=== PATIENT | female | born 1970 | race Caucasian/White ===

== ENCOUNTER 2016-09-25 14:57 | Emergency (ER) | payer MEDICAID ==
[2016-09-25] MEDS ORDERED: HYDROcod/ACETAM 5/325 MG TABLET PO STA (17:13)
[2016-09-25] MEDS ORDERED: DEXAMETHASONE 10 MG/ML VIAL PO STA (17:13)
[2016-09-25] MEDS ORDERED: ALBUTEROL NEB 2.5 MG/3 ML INH STA (17:14)
[2016-09-25] MEDS ORDERED: CHERRY SYRUP 10 ML UDC PO ONE (17:19)
[2016-09-25] MEDS ORDERED: DEXAMETHASONE 10 MG/ML VIAL ONE (17:19)
[2016-09-25] MEDS ORDERED: HYDROcod/ACETAM 5/325 MG TABLET ONE (17:20)
[2016-09-25] MEDS ORDERED: ALBUTEROL NEB 2.5 MG/3 ML INH ONE (17:28)
[2016-09-25] MEDS ORDERED: AZITHROMYCIN 250 MG TABLET PO STA (19:09)
[2016-09-25] MEDS ORDERED: AZITHROMYCIN 250 MG TABLET PO ONE (19:14)
== END 2016-09-25 19:20 | disposition home or self-care (01) ==
DX: J44.9 Chronic obstructive pulmonary disease, unspecified (principal); J45.909 Unspecified asthma, uncomplicated; N93.9 Abnormal uterine and vaginal bleeding, unspecified; I10 Essential (primary) hypertension; M79.7 Fibromyalgia
CPT/HCPCS: 36415; 76830; 76856; 80053; 83690; 85025; 93976; 94640; 99283; 99284; A9270; J7613

== ENCOUNTER 2016-11-12 16:45 | Emergency (ER) | payer MEDICAID ==
[2016-11-12] MEDS ORDERED: CEPHALEXIN 250 MG CAPSULE PO STA (17:06)
[2016-11-12] MEDS ORDERED: LIDOCAINE VISCOUS 2% 15 ML UDC MM STA (17:06)
[2016-11-12] MEDS ORDERED: IBUPROFEN 600 MG TABLET PO STA (17:06)
[2016-11-12] MEDS ORDERED: oxyCOD/ACETAMIN 5 MG/325 MG TABLET PO STA (17:06)
[2016-11-12] MEDS ORDERED: oxyCOD/ACETAMIN 5 MG/325 MG TABLET PO ONE (17:12)
[2016-11-12] MEDS ORDERED: CEPHALEXIN 250 MG CAPSULE PO ONE (17:12)
[2016-11-12] MEDS ORDERED: LIDOCAINE VISCOUS 2% 15 ML UDC MM ONE (17:12)
[2016-11-12] MEDS ORDERED: IBUPROFEN 600 MG TABLET PO ONE (17:12)
== END 2016-11-12 17:40 | disposition home or self-care (01) ==
DX: K04.7 Periapical abscess without sinus (principal); K02.9 Dental caries, unspecified; K08.89 Other specified disorders of teeth and supporting structures; S02.5XXA Fracture of tooth (traumatic), initial encounter for closed fracture; X58.XXXA Exposure to other specified factors, initial encounter; I10 Essential (primary) hypertension; J45.909 Unspecified asthma, uncomplicated; M79.7 Fibromyalgia; Z98.84 Bariatric surgery status
CPT/HCPCS: 99282; 99283; A9270

== ENCOUNTER 2017-01-28 20:12 | Emergency (ER) | payer MEDICAID ==
[2017-01-28 20:19] VITALS: BP 128/88
[2017-01-28] MEDS ORDERED: CLINDAMYCIN 150 MG CAPSULE PO STA (20:58)
[2017-01-28] MEDS ORDERED: oxyCODONE/ACET 5/325 Prepack 4 PO STA (20:58)
--- NOTE | 2017-01-28 21:01 | ED Physician Documentation ---
PD HPI HEENT - Stated complaint Stated Complaint: MOUTH PX - Chief complaint Chief Complaint: Heent - History obtained from History obtained from: Patient - History of Present Illness Timing - onset: Other Timing - details: Abrupt onset (She had a left mandibular molar removed a few days ago and she has increasing pain but no facial swelling or fevers.) Review of Systems Constitutional: reports: Reviewed and negative Nose: reports: Reviewed and negative Cardiac: reports: Reviewed and negative PD PAST MEDICAL HISTORY - Past Medical History Past Medical History: Yes Cardiovascular: Hypertension Respiratory: Asthma Neuro: Headache/migraine Endocrine/Autoimmune: None GI: None : None HEENT: Chronic vision loss Psych: Depression, Anxiety, Panic attacks, Post traumatic stress disorder, Obsessive compulsive disorder Musculoskeletal: Fibromyalgia, Chronic back pain Derm: Eczema, Other - Past Surgical History Past Surgical History: Yes General: Cholecystectomy, Gastric surgery, Other /PA[employer]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[employer]: section - Present Medications Home Medications: Ambulatory Orders Medication Instructions Recorded Confirmed Albuterol Sulfate [Proair Hfa] 1 puffs INH DAILY 10/10/14 08/05/16 Amitriptyline HCl 50 mg PO DAILY 10/10/14 08/05/16 Bupropion HCl 100 mg PO BID 10/10/14 08/05/16 Cetirizine HCl 10 mg PO DAILY 10/10/14 08/05/16 Cyclobenzaprine HCl 10 mg PO TID 10/10/14 08/05/16 Diclofenac Sodium [Voltaren] 1 applic TOP DAILY 10/10/14 08/05/16 Docusate Sodium 100Mg Capsule 200 mg PO BID 10/10/14 08/05/16 [Colace] Fluoxetine HCl 40 mg PO DAILY 10/10/14 08/05/16 Fluticasone/Salmeterol 500/50 2 puffs INH DAILY 10/10/14 08/05/16 [Advair 500 Mcg/50 Mcg] Pregabalin [Lyrica] 100 mg PO TID 10/10/14 08/05/16 Ranitidine HCl 150 mg PO BID 10/10/14 08/05/16 Spironolactone 50 mg PO DAILY 10/10/14 08/05/16 Sumatriptan Succinate [Imitrex] 1 tab PO Q6HR PRN 10/10/14 08/05/16 Topiramate [Topamax] 100 mg PO BID 10/10/14 08/05/16 diphenhydrAMINE [Benadryl] 50 mg PO BID 10/10/14 08/05/16 Ibuprofen [Motrin] 600 mg PO TID #20 tab 11/17/15 08/05/16 Estradiol [Estrace] 1 applic TOP DAILY 08/01/16 08/05/16 Lisinopril 1 tab PO DAILY 08/01/16 08/05/16 Prazosin [Minipress] 1 tab PO DAILY 08/01/16 08/05/16 Promethazine [Phenergan] 1 tab PO DAILY PRN 08/01/16 08/05/16 QUEtiapine [SEROquel] 300 mg PO DAILY 08/01/16 08/05/16 Senna [Senokot] 2 tab PO BID 08/01/16 08/05/16 Azithromycin [Zithromax] 250 mg PO DAILY #6 tablet 09/25/16 Benzonatate [Tessalon] 100 mg PO TID PRN #25 capsule 09/25/16 Dexamethasone [Decadron] 4 mg PO DAILY #5 tablet 09/25/16 Hydrocodone/Acetaminophen [[place] 1 each PO Q6H PRN #15 tablet 09/25/16 5-325 Tablet] Cephalexin [Keflex] 500 mg PO TID #20 capsule 11/12/16 Naproxen [Naprosyn] 500 mg PO BID #20 tablet 11/12/16 Oxycodone HCl/Acetaminophen 1 each PO Q6H PRN #20 tablet 11/12/16 [Percocet 5-325 mg Tablet] Clindamycin [Cleocin] 300 mg PO Q6H 10 Days 01/28/17 Oxycodone HCl/Acetaminophen 1 - 2 tab PO Q4H PRN #15 tablet 01/28/17 [Percocet 5-325 mg Tablet] - Allergies Allergies/Adverse Reactions: Allergies Allergy/AdvReac Type Severity Reaction Status Date / Time aloe vera Allergy Rash Verified 11/12/16 16:57 lanolin Allergy Rash Verified 11/12/16 16:57 latex AdvReac Anaphylaxis Verified 11/12/16 16:57 - Social History Does the pt smoke?: No Smoking Status: Never smoker Does the pt drink ETOH?: No Does the pt have substance abuse?: No - Immunizations Immunizations are current?: Yes - POLST Patient has POLST: No PD ED PE NORMAL - Vitals Vital signs reviewed: Yes - General General: Alert and oriented X 3, No acute distress - HEENT HEENT: Other (Dry socket left mandible no trismus or facial swelling.) - Neck Neck: Supple, no meningeal sign, No bony TTP - Neuro Neuro: Alert and oriented X 3, Normal speech Results - Vitals Vitals: Vital Signs - 24 hr 01/28/17 20:17 Temperature 37.1 C Heart Rate 80 Respiratory 16 Rate Blood Pressure 128/88 H O2 Saturation 97 Oxygen O2 Source Room air Departure - Departure Disposition: Home, Self Care Clinical Impression: Dry tooth socket Condition: Good Record reviewed to determine appropriate education?: Yes Instructions: ED Socket Dry Prescriptions: Clindamycin [Cleocin] 300 mg PO Q6H 10 Days Oxycodone HCl/Acetaminophen [Percocet 5-325 mg Tablet] 1 - 2 tab PO Q4H PRN #15 tablet PRN Reason: Pain Comments: Your blood pressure was elevated today on check in to the emergency department. This does not mean that you have hypertension, it is a common phenomenon to check into the emergency department and have elevated blood pressure. I recommend that you see your primary care physician within the week to have it rechecked when you're feeling better. It is very important that you follow up with a dentist. When it comes to dental problems like yours the emergency department can only offer you a short-term solution to your long-term problem. A couple of options for low-cost dental care include: [facility] in [place] call [phone] for an appointment Or [facility] in [place], call [phone] for an appointment Do not drink or drive while on narcotic pain medicine. Note that many narcotic pain relievers also contain tylenol/acetaminophen. Please ensure that your total dose of acetaminophen from all sources does not exceed 3 grams (3000mg) per day. You may constipated on this medication, take a stool softener such as "Colace" twice a day while you are on it. Also recommend a [id number] laxative such as senna or MiraLAX any day that you do not have a bowel movement. If you received narcotic pain medication in the emergency department, do not drive or operate machinery for the next 24 hours.
[2017-01-28] MEDS ORDERED: oxyCODONE/ACET 5/325 Prepack 4 PO ONE (21:05)
[2017-01-28] MEDS ORDERED: CLINDAMYCIN 150 MG CAPSULE PO ONE (21:06)
== END 2017-01-28 21:14 | disposition home or self-care (01) ==
LOC: ED 20:12
DX: M27.3 Alveolitis of jaws (principal); I10 Essential (primary) hypertension; J45.909 Unspecified asthma, uncomplicated; M79.7 Fibromyalgia
CPT/HCPCS: 99283; A9270

== ENCOUNTER 2017-03-19 16:28 | Emergency (ER) | payer MEDICAID ==
[2017-03-19] MEDS ORDERED: BUPIVACAINE 0.5%-EPI 1:200000 PF 30 ML VIAL ONE (16:42)
--- NOTE | 2017-03-19 16:44 | ED Physician Documentation ---
PD HPI HEENT - Stated complaint Stated Complaint: TOOTH PX - Chief complaint Chief Complaint: Heent - History obtained from History obtained from: Patient - History of Present Illness Timing - onset: Other (Broken tooth on the right mandible with severe pain for the last 2 days, no facial swelling or fevers.) Review of Systems Constitutional: denies: Fever, Chills Nose: denies: Rhinorrhea / runny nose, Congestion Throat: denies: Sore throat PD PAST MEDICAL HISTORY - Past Medical History Cardiovascular: Hypertension Respiratory: Asthma Neuro: Headache/migraine Endocrine/Autoimmune: None GI: None : None HEENT: Chronic vision loss Psych: Depression, Anxiety, Panic attacks, Post traumatic stress disorder, Obsessive compulsive disorder Musculoskeletal: Fibromyalgia, Chronic back pain Derm: Eczema, Other - Past Surgical History Past Surgical History: Yes General: Cholecystectomy, Gastric surgery, 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 Medications Home Medications: Ambulatory Orders Medication Instructions Recorded Confirmed Albuterol Sulfate [Proair Hfa] 1 puffs INH DAILY 10/10/14 03/19/17 Amitriptyline HCl 50 mg PO DAILY 10/10/14 03/19/17 Bupropion HCl 100 mg PO BID 10/10/14 03/19/17 Cetirizine HCl 10 mg PO DAILY 10/10/14 03/19/17 Cyclobenzaprine HCl 10 mg PO TID 10/10/14 03/19/17 Diclofenac Sodium [Voltaren] 1 applic TOP DAILY 10/10/14 03/19/17 Docusate Sodium 100Mg Capsule 200 mg PO BID 10/10/14 03/19/17 [Colace] Fluoxetine HCl 40 mg PO DAILY 10/10/14 03/19/17 Fluticasone/Salmeterol 500/50 2 puffs INH DAILY 10/10/14 03/19/17 [Advair 500 Mcg/50 Mcg] Pregabalin [Lyrica] 100 mg PO TID 10/10/14 03/19/17 Ranitidine HCl 150 mg PO BID 10/10/14 03/19/17 Spironolactone 50 mg PO DAILY 10/10/14 03/19/17 Sumatriptan Succinate [Imitrex] 1 tab PO Q6HR PRN 10/10/14 03/19/17 Topiramate [Topamax] 100 mg PO BID 10/10/14 03/19/17 diphenhydrAMINE [Benadryl] 50 mg PO BID 10/10/14 03/19/17 Ibuprofen [Motrin] 600 mg PO TID #20 tab 11/17/15 03/19/17 Estradiol [Estrace] 1 applic TOP DAILY 08/01/16 03/19/17 Lisinopril 1 tab PO DAILY 08/01/16 03/19/17 Prazosin [Minipress] 1 tab PO DAILY 08/01/16 03/19/17 Promethazine [Phenergan] 1 tab PO DAILY PRN 08/01/16 03/19/17 QUEtiapine [SEROquel] 300 mg PO DAILY 08/01/16 03/19/17 Senna [Senokot] 2 tab PO BID 08/01/16 03/19/17 Dexamethasone [Decadron] 4 mg PO DAILY #5 tablet 09/25/16 03/19/17 Clindamycin [Cleocin] 300 mg PO Q6H 10 Days 03/19/17 Oxycodone HCl/Acetaminophen 1 - 2 tab PO Q4H PRN #15 tablet 03/19/17 [Percocet 5-325 mg Tablet] - Allergies Allergies/Adverse Reactions: Allergies Allergy/AdvReac Type Severity Reaction Status Date / Time aloe vera Allergy Rash Verified 11/12/16 16:57 lanolin Allergy Rash Verified 11/12/16 16:57 latex AdvReac Anaphylaxis Verified 11/12/16 16:57 - Social History Does the pt smoke?: No Smoking Status: Never smoker Does the pt drink ETOH?: No Does the pt have substance abuse?: No - Immunizations Immunizations are current?: Yes - POLST Patient has POLST: No PD ED PE NORMAL - Vitals Vital signs reviewed: Yes - General General: Alert and oriented X 3, No acute distress - HEENT HEENT: Other (Large cavity in a right mandibular molar with tenderness but no facial swelling, no sublingual edema, no trismus.) - Neck Neck: Supple, no meningeal sign, No bony TTP - Neuro Neuro: Alert and oriented X 3, Normal speech - Psych Psych: Normal mood, Normal affect Results - Vitals Vitals: Vital Signs - 24 hr 03/19/17 16:29 Temperature 36.7 C Heart Rate 93 Respiratory 18 Rate Blood Pressure 155/104 H O2 Saturation 97 Oxygen O2 Source Room air Procedures - Regional nerve block Nerve block site: Inferior alveolar Right / left: Right Nerve block anesthesia: Marcaine 0.5% Nerve block aftercare: Excellent anesthesia, No complications Departure - Departure Disposition: 01 Home, Self Care Clinical Impression: Pain due to dental caries, Dental infection Condition: Good Record reviewed to determine appropriate education?: Yes Instructions: ED Tooth Pain Prescriptions: Clindamycin [Cleocin] 300 mg PO Q6H 10 Days Oxycodone HCl/Acetaminophen [Percocet 5-325 mg Tablet] 1 - 2 tab PO Q4H PRN #15 tablet PRN Reason: Pain Comments: It is very important that she follow-up with a dentist. When it comes to dental problems like yours, the emergency department can only offer a short- term solution to your long-term problem. A couple of low cost options for dental care include: [facility] in [place], calls [phone] for an appointment Or [facility] in [place], call [phone] for an appointment. Do not drink or drive while taking narcotic pain medication. Note that many narcotic pain relievers also contain Tylenol/acetaminophen. Please ensure that your total dose of acetaminophen from all sources does not exceed 3 g (3000 mg) per day. You may get constipated while on this medication. Take a stool softener such as Colace twice a day while you are on it. Also add an mcne-ojz-pyfpjky laxative such as senna or MiraLAX on any day that you do not have a bowel movement. If you received a narcotic pain medication or sedative while in the emergency department, do not drive for the next 24 hours. Your blood pressure was elevated today on check into the emergency department. This does not mean that you have hypertension, it is a common phenomenon to come to the emergency department and have elevated blood pressure. I recommend that she see her primary care physician within the week to have it rechecked when you are feeling better. The policy of this emergency department is to not give more than 3 prescriptions for narcotics or other controlled substances in any 1 year. You have already surpassed this benchmark and we cannot prescribe narcotics for you. I encourage you to follow up with your primary care physician or to establish care with a primary care physician for ongoing pain management. You are always welcome to seek emergency care here for this or new issues but there will likely be limitations in the prescription of narcotic pain medication.
[2017-03-19 17:06] VITALS: BP 159/106
== END 2017-03-19 17:04 | disposition home or self-care (01) ==
LOC: ED 16:28
DX: K04.7 Periapical abscess without sinus (principal); K02.9 Dental caries, unspecified; K08.89 Other specified disorders of teeth and supporting structures; I10 Essential (primary) hypertension; J45.909 Unspecified asthma, uncomplicated; M79.7 Fibromyalgia
CPT/HCPCS: 64450; 99282; 99283

== ENCOUNTER 2017-04-08 11:04 | Emergency (ER) | payer MEDICAID ==
--- NOTE | 2017-04-08 12:30 | ED Physician Documentation ---
PD HPI HEENT - Stated complaint Stated Complaint: TOOTH PX - Chief complaint Chief Complaint: Heent - History obtained from History obtained from: Patient - History of Present Illness Timing - onset: How many weeks ago (has had broken tooth awhile and it hurts, but pain worse the past week or so. Concerned about infection. Pain radiates to ear and side of face.) Timing - duration: Weeks (1 week worse pain but has been hurting longer. made appt with [facility] but it is not until early June.) Timing - details: Gradual onset, Still present, Waxing and waning Location: Tooth (right lower) Worsens: Swalllowing, Temperatures Associated symptoms: No: Fever, Congestion, Swollen nodes, Facial swelling Similar symptoms before: Diagnosis (broken tooth and infection) Review of Systems Constitutional: denies: Fever, Chills Nose: denies: Congestion Throat: denies: Sore throat Respiratory: denies: Cough Skin: denies: Rash, Lesions PD PAST MEDICAL HISTORY - Past Medical History Past Medical History: Yes Cardiovascular: Hypertension Respiratory: Asthma Neuro: Headache/migraine Endocrine/Autoimmune: None GI: None : None HEENT: Chronic vision loss Psych: Depression, Anxiety, Panic attacks, Post traumatic stress disorder, Obsessive compulsive disorder Musculoskeletal: Fibromyalgia, Chronic back pain Derm: Eczema, Other - Past Surgical History Past Surgical History: Yes General: Cholecystectomy, Gastric surgery, 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 Medications Home Medications: Ambulatory Orders Medication Instructions Recorded Confirmed Amitriptyline HCl 50 mg PO DAILY 10/10/14 04/08/17 Bupropion HCl 100 mg PO BID 10/10/14 04/08/17 Cetirizine HCl 10 mg PO DAILY 10/10/14 04/08/17 Cyclobenzaprine HCl 10 mg PO TID 10/10/14 04/08/17 Docusate Sodium 100Mg Capsule 200 mg PO BID 10/10/14 04/08/17 [Colace] Fluoxetine HCl 40 mg PO DAILY 10/10/14 04/08/17 Fluticasone/Salmeterol 500/50 2 puffs INH DAILY 10/10/14 04/08/17 [Advair 500 Mcg/50 Mcg] Pregabalin [Lyrica] 100 mg PO TID 10/10/14 04/08/17 Ranitidine HCl 150 mg PO BID 10/10/14 04/08/17 Topiramate [Topamax] 100 mg PO BID 10/10/14 04/08/17 Ibuprofen [Motrin] 600 mg PO TID #20 tab 11/17/15 04/08/17 Lisinopril 1 tab PO DAILY 08/01/16 04/08/17 Promethazine [Phenergan] 1 tab PO DAILY PRN 08/01/16 04/08/17 QUEtiapine [SEROquel] 300 mg PO DAILY 08/01/16 04/08/17 Senna [Senokot] 2 tab PO BID 08/01/16 04/08/17 Oxycodone HCl/Acetaminophen 1 - 2 tab PO Q4H PRN #15 tablet 03/19/17 04/08/17 [Percocet 5-325 mg Tablet] Cephalexin [Keflex] 500 mg PO TID #21 capsule 04/08/17 Oxybutynin [Ditropan] 5 mg PO DAILY 04/08/17 04/08/17 Oxycodone HCl/Acetaminophen 1 each PO Q6H PRN #20 tablet 04/08/17 [Percocet 5-325 mg Tablet] - Allergies Allergies/Adverse Reactions: Allergies Allergy/AdvReac Type Severity Reaction Status Date / Time aloe vera Allergy Rash Verified 11/12/16 16:57 lanolin Allergy Rash Verified 11/12/16 16:57 latex AdvReac Anaphylaxis Verified 11/12/16 16:57 - Social History Does the pt smoke?: No Smoking Status: Never smoker Does the pt drink ETOH?: No Does the pt have substance abuse?: No - Immunizations Immunizations are current?: Yes - POLST Patient has POLST: No PD ED PE NORMAL - Vitals Vital signs reviewed: Yes - General General: Alert and oriented X 3, Well developed/nourished - HEENT HEENT: Ears normal, Pharynx benign. No: Dentition benign (multiple caries. right lower molar with significant decay. Tender to percussion. Mild swelling but no redness of the buccal side gum. ) - Neck Neck: Supple, no meningeal sign, No adenopathy - Cardiac Cardiac: RRR, No murmur - Respiratory Respiratory: Clear bilaterally - Derm Derm: Normal color, Warm and dry, No rash Results - Vitals Vitals: Vital Signs - 24 hr 04/08/17 04/08/17 11:06 12:56 Temperature 36.3 C L Heart Rate 80 78 Respiratory 18 18 Rate Blood Pressure 138/93 H 130/90 H O2 Saturation 99 99 Oxygen O2 Source Room air PD MEDICAL DECISION MAKING - ED course Complexity details: considered differential (sounds like she is making effort but does not have appt with [facility] until June (i did not research if that is true). Concern for early infection. and can give some short pain meds. Reinforced that medication best from PMD and the true answer to the tooth problem is dental services. ), d/w patient Departure - Departure Disposition: Home, Self Care Clinical Impression: Pain due to dental caries Condition: Stable Record reviewed to determine appropriate education?: Yes Instructions: ED Tooth Pain Follow-Up: ALONZO NAYLOR MD [Primary Care Provider] - Prescriptions: Cephalexin [Keflex] 500 mg PO TID #21 capsule Oxycodone HCl/Acetaminophen [Percocet 5-325 mg Tablet] 1 each PO Q6H PRN #20 tablet PRN Reason: Pain Comments: Cleanse the gums and tooth area with antiseptic such as Listerine twice daily. Some anti-inflammatories such as ibuprofen or naproxen are good once or twice a day. Add Tylenol or Percocet if needed for pain. Cephalexin for concern of infection. It is unfortunate that [facility] cannot see you until June, call them back to see if they have any cancellation appointments sooner. Follow-up with dental as soon as you are able. Further treatment medications for your tooth should come through your primary care. Discharge Date/Time: 04/08/17 12:57
[2017-04-08] MEDS ORDERED: oxyCOD/ACETAMIN 5 MG/325 MG TABLET PO STA (12:46)
[2017-04-08] MEDS ORDERED: CEPHALEXIN 250 MG CAPSULE PO STA (12:46)
[2017-04-08] MEDS ORDERED: CEPHALEXIN 250 MG CAPSULE PO ONE (12:54)
[2017-04-08] MEDS ORDERED: oxyCOD/ACETAMIN 5 MG/325 MG TABLET PO ONE (12:55)
[2017-04-08 12:56] VITALS: BP 130/90
== END 2017-04-08 12:57 | disposition home or self-care (01) ==
LOC: ED 11:04
DX: K08.89 Other specified disorders of teeth and supporting structures (principal); K02.9 Dental caries, unspecified; I10 Essential (primary) hypertension; J45.909 Unspecified asthma, uncomplicated; M79.7 Fibromyalgia; Z98.84 Bariatric surgery status
CPT/HCPCS: 99283; A9270

== ENCOUNTER 2017-10-20 12:51 | Emergency (ER) | payer MEDICAID ==
--- NOTE | 2017-10-20 14:19 | ED Physician Documentation ---
PD HPI URI - Stated complaint Stated Complaint: BODY ACHES/FEVER - Chief complaint Chief Complaint: General - History obtained from History obtained from: Patient - History of Present Illness Timing - onset: How many days ago (2) Timing duration: Days (2) Timing details: Gradual onset, Still present Associated symptoms: Fever, Chills, Nasal congestion, Rhinorrhea, Dry cough, NVD , Other (frontal headache). No: Sore throat, Hemoptysis, Chest pain, Dyspnea Contributing factors: No: Sick contact, Travel, Immunocompromised Improves by: No: Rest Worsened by: Activity Similar symptoms before: Has not had sx before Recently seen: Not recently seen Review of Systems Constitutional: reports: Fever, Chills, Myalgias, Fatigue Nose: reports: Rhinorrhea / runny nose, Congestion Throat: denies: Dental pain / toothache, Oral lesions / sores, Sore throat, Swollen tonsils Cardiac: denies: Chest pain / pressure, Palpitations Respiratory: reports: Cough. denies: Dyspnea, Wheezing GI: reports: Nausea, Vomiting, Diarrhea. denies: Abdominal Pain : denies: Dysuria, Frequency Skin: denies: Rash Neurologic: reports: Generalized weakness, Headache. 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 Medications Home Medications: Ambulatory Orders Medication Instructions Recorded Confirmed Cetirizine HCl 10 mg PO DAILY 10/10/14 10/20/17 Cyclobenzaprine HCl 10 mg PO TID 10/10/14 10/20/17 Docusate Sodium 100Mg Capsule 200 mg PO BID 10/10/14 10/20/17 [Colace] Fluticasone/Salmeterol 500/50 2 puffs INH DAILY 10/10/14 10/20/17 [Advair 500 Mcg/50 Mcg] Pregabalin [Lyrica] 100 mg PO TID 10/10/14 10/20/17 Ranitidine HCl 150 mg PO BID 10/10/14 10/20/17 Topiramate [Topamax] 100 mg PO BID 10/10/14 10/20/17 buPROPion HCl [Bupropion HCl] 100 mg PO BID 10/10/14 10/20/17 Ibuprofen [Motrin] 600 mg PO TID #20 tab 11/17/15 10/20/17 Lisinopril 1 tab PO DAILY 08/01/16 10/20/17 Promethazine [Phenergan] 1 tab PO DAILY PRN 08/01/16 10/20/17 Senna [Senokot] 2 tab PO BID 08/01/16 10/20/17 Dexamethasone [Decadron] 4 mg PO DAILY #5 tablet 10/20/17 HYDROcod/ACETAM 5/325 [Morton 5/325] 1 tab PO Q6H PRN #15 tablet 10/20/17 Promethazine [Phenergan] 25 mg PO Q6H PRN #30 tab 10/20/17 Sumatriptan Succinate [Imitrex] 100 mg PO ONCE PRN #9 tablet 10/20/17 - Allergies Allergies/Adverse Reactions: Allergies Allergy/AdvReac Type Severity Reaction Status Date / Time aloe vera Allergy Rash Verified 10/20/17 14:16 lanolin Allergy Rash Verified 10/20/17 14:16 latex AdvReac Anaphylaxis Verified 10/20/17 14:16 - Social History Does the pt smoke?: No Smoking Status: Never smoker Does the pt drink ETOH?: No Does the pt have substance abuse?: No - Immunizations Immunizations are current?: Yes - POLST Patient has POLST: No PD ED PE NORMAL - Vitals Vital signs reviewed: Yes - General General: Alert and oriented X 3, No acute distress, Well developed/nourished - HEENT HEENT: Ears normal, Pharynx benign. No: Moist mucous membranes - Neck Neck: Supple, no meningeal sign, No adenopathy - Cardiac Cardiac: RRR, No murmur - Respiratory Respiratory: Clear bilaterally - Abdomen Abdomen: Soft, Non tender - Back Back: No CVA TTP - Derm Derm: Normal color, Warm and dry - Extremities Extremities: No tenderness to palpate, Normal ROM s pain - Neuro Neuro: Alert and oriented X 3, No motor deficit, No sensory deficit, Normal speech Eye Opening: Spontaneous Motor: Obeys Commands Verbal: Oriented GCS Score: 15 - Psych Psych: Normal mood, Normal affect Results - Vitals Vitals: Oxygen O2 Source Room air - Labs Labs: Laboratory Tests 10/20/17 14:28 Influenza A (Rapid) Negative Influenza B (Rapid) Negative Influenza Types A,B Ag - PD MEDICAL DECISION MAKING - ED course Complexity details: reviewed results, re-evaluated patient (much improved with meds. ), considered differential (she does not appear meningitic and exam does not suggest that. She has had some URI symptoms nad malaise, but has headache similar to prior migraines. ), d/w patient Departure - Departure Disposition: 01 Home, Self Care Clinical Impression: Flu-like symptoms Migraine headache Qualifiers: Migraine type: unspecified Status migrainosus presence: without status migrainosus Intractability: not intractable Qualified Code(s): G43.909 - Migraine, unspecified, not intractable, without status migrainosus Condition: Stable Record reviewed to determine appropriate education?: Yes Instructions: ED Headache Migraine, ED Viral Syndrome Follow-Up: ALONZO NAYLOR MD [Primary Care Provider] - Prescriptions: Dexamethasone [Decadron] 4 mg PO DAILY #5 tablet HYDROcod/ACETAM 5/325 [Morton 5/325] 1 tab PO Q6H PRN #15 tablet PRN Reason: Pain Promethazine [Phenergan] 25 mg PO Q6H PRN #30 tab PRN Reason: Nausea / Vomiting Sumatriptan Succinate [Imitrex] 100 mg PO ONCE PRN #9 tablet PRN Reason: Migraine Comments: Your symptoms generally sound like a flu or viral type illness. Use promethazine if needed for nausea. Use Decadron daily for 5 days as an anti- inflammatory to decrease symptoms of aches and cough and such. Add Tylenol or hydrocodone if needed for pains. It also sounds like he had a migraine triggered and if you have subsequent ones, use the Imitrex and promethazine for those. Follow-up with your primary care if not improved over the next 3-5 days. Discharge Date/Time: 10/20/17 19:39
[2017-10-20] MEDS ORDERED: KETOROLAC 60 MG/2 ML VIAL IM STA (14:55)
[2017-10-20] MEDS ORDERED: ONDANSETRON ODT 4 MG TABLET TL STA (14:55)
[2017-10-20] MEDS ORDERED: HYDROmorphone 1 MG/ML SYRINGE IM STA (14:55)
[2017-10-20] MEDS ORDERED: PROMETHAZINE 25 MG/1 ML VIAL IM STA (14:55)
[2017-10-20] MEDS ORDERED: DEXAMETHASONE 10 MG/ML VIAL PO STA (14:55)
[2017-10-20] MEDS ORDERED: METOCLOPRAMIDE 10 MG/2 ML VIAL IVP STA (15:53)
[2017-10-20] MEDS ORDERED: SODIUM CHLORIDE 0.9% 1,000 ML IV ONE ×2 (15:53→18:07)
[2017-10-20] MEDS ORDERED: HYDROmorphone 1 MG/ML SYRINGE IVP STA (15:53)
[2017-10-20] MEDS ORDERED: ONDANSETRON 4 MG/2 ML VIAL IVP STA (19:20)
[2017-10-20 19:40] VITALS: BP 110/67
== END 2017-10-20 19:39 | disposition home or self-care (01) ==
LOC: ED 12:51
DX: M79.1 Myalgia (principal); R50.9 Fever, unspecified; R09.81 Nasal congestion; G43.909 Migraine, unspecified, not intractable, without status migrainosus; I10 Essential (primary) hypertension
CPT/HCPCS: 87275; 87276; 96361; 96372; 96374; 96375; 99283; 99284; J1170; J2765; Q0162; 81001; 81003; 87086

== ENCOUNTER 2017-11-21 18:23 | Emergency (ER) | payer MEDICAID ==
[2017-11-21 18:36] VITALS: BP 144/89
--- NOTE | 2017-11-21 19:57 | XRAY Report ---
EXAM: CHEST RADIOGRAPHY EXAM DATE: 11/21/2017 07:47 PM. CLINICAL HISTORY: Cough, fever. COMPARISON: 10/18/2014. TECHNIQUE: 2 views. FINDINGS: Lungs/Pleura: No focal opacities evident. No pleural effusion. No pneumothorax. Normal volumes. Mediastinum: Heart and mediastinal contours are unremarkable. Other: None. IMPRESSION: No acute cardiopulmonary abnormality. [facility] Referring Provider Line: [phone] SITE ID: [id number]
--- NOTE | 2017-11-21 19:57 | XRAY Preliminary Report ---
Exam: XR CHEST 2 VIEW X-RAY IMPRESSION: No acute cardiopulmonary abnormality. [facility] SITE ID: [id number]
--- NOTE | 2017-11-21 20:14 | ED Physician Documentation ---
PD HPI URI - Stated complaint Stated Complaint: COUGH - Chief complaint Chief Complaint: Resp - History obtained from History obtained from: Patient, Family - History of Present Illness Timing - onset: How many weeks ago (2) Timing duration: Weeks (2) Timing details: Gradual onset Pain level max: 0 Pain level now: 0 Associated symptoms: Nasal congestion, Rhinorrhea, Dry cough Contributing factors: Sick contact Improves by: Rest, Medication (mucinex) Worsened by: Activity, Breathing Recently seen: Emergency Dept (seen here 2 weeks ago for same) - Additional information Additional information: Patient is a 47-year-old female presents to the emergency department with viral URI symptoms, for the past several weeks. Has only been using her inhaler 2-3 times a day. Is not currently on any steroids. Continues to have cough and that is keeping her up at night. Review of Systems Constitutional: denies: Fever Nose: reports: Rhinorrhea / runny nose, Congestion Cardiac: denies: Chest pain / pressure Respiratory: reports: Dyspnea, Cough, Wheezing GI: reports: Abdominal Pain (states abd hurts with coughing). denies: Nausea, Vomiting, Diarrhea Skin: denies: Rash Musculoskeletal: denies: Neck pain, Back pain Neurologic: denies: Headache PD PAST MEDICAL HISTORY - Past Medical History Past Medical History: Yes Cardiovascular: Hypertension Respiratory: Asthma Neuro: Headache/migraine Endocrine/Autoimmune: None GI: None : None HEENT: Chronic vision loss Psych: Depression, Anxiety, Panic attacks, Post traumatic stress disorder, Obsessive compulsive disorder Musculoskeletal: Fibromyalgia, Chronic back pain Derm: Eczema, Other - Past Surgical History Past Surgical History: Yes General: Cholecystectomy, Gastric surgery, 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 - Present Medications Home Medications: Ambulatory Orders Medication Instructions Recorded Confirmed Albuterol 2.5 mg INH Q4H PRN #30 neb 11/21/17 Albuterol Sulfate [Proair Hfa 1 - 2 puffs PO PRN PRN 11/21/17 11/21/17 Inhaler] Benzonatate [Tessalon Perle] 100 - 200 mg PO TID PRN #30 capsule 11/21/17 Cyclobenzaprine [Flexeril] 10 mg PO PRN PRN 11/21/17 11/21/17 DULoxetine [Cymbalta] 30 mg PO DAILY 11/21/17 11/21/17 Docusate Sodium 1 tab PO DAILY 11/21/17 11/21/17 Doxycycline Hyclate 100 mg PO BID #20 tablet 11/21/17 Fluticasone/Salmeterol [Advair 1 tab PO DAILY 11/21/17 11/21/17 250-50 Diskus] Lisinopril 20 mg PO DAILY 11/21/17 11/21/17 Magnesium Oxide [Magnesium] 400 mg PO DAILY 11/21/17 11/21/17 Prazosin HCl 5 mg PO DAILY 11/21/17 11/21/17 Pregabalin [Lyrica] 100 mg PO DAILY 11/21/17 11/21/17 QUEtiapine [SEROquel] 50 mg PO DAILY 11/21/17 11/21/17 Senna [Senokot] 8.6 mg PO DAILY 11/21/17 11/21/17 Topiramate 50 mg PO DAILY 11/21/17 11/21/17 Topiramate [Trokendi Xr] 100 mg PO DAILY 11/21/17 11/21/17 buPROPion [Wellbutrin Sr] 150 mg PO DAILY 11/21/17 11/21/17 raNITIdine [Zantac] 150 mg PO DAILY 11/21/17 11/21/17 - Allergies Allergies/Adverse Reactions: Allergies Allergy/AdvReac Type Severity Reaction Status Date / Time aloe vera Allergy Rash Verified 11/21/17 18:37 lanolin Allergy Rash Verified 11/21/17 18:37 latex AdvReac Anaphylaxis Verified 10/20/17 14:16 - Social History Does the pt smoke?: No Smoking Status: Never smoker Does the pt drink ETOH?: No Does the pt have substance abuse?: No - Immunizations Immunizations are current?: Yes - POLST Patient has POLST: No PD ED PE NORMAL - Vitals Vital signs reviewed: Yes - General General: Alert and oriented X 3, No acute distress, Well developed/nourished - HEENT HEENT: PERRL, Ears normal, Moist mucous membranes, Pharynx benign - Neck Neck: Supple, no meningeal sign, No adenopathy - Cardiac Cardiac: RRR - Respiratory Respiratory: Other (diminished B) - Abdomen Abdomen: Soft, Non tender, Non distended - Derm Derm: Warm and dry - Neuro Neuro: Alert and oriented X 3 - Psych Psych: Normal mood, Normal affect Results - Vitals Vitals: Vital Signs - 24 hr 11/21/17 11/21/17 18:33 20:25 Temperature 37.1 C Heart Rate 110 H 108 H Respiratory 19 18 Rate Blood Pressure 144/89 H O2 Saturation 96 Oxygen O2 Source Room air - Rads (name of study) cxr Radiology: Prelim report reviewed, EMP read contemporaneously, See rad report ( normal) PD MEDICAL DECISION MAKING - ED course Complexity details: reviewed results, re-evaluated patient, considered differential, d/w patient, d/w family ED course: Patient is a 47-year-old female who presents to the emergency department with what appears to be a COPD exacerbation. As her symptoms have been ongoing for over a month now and given her COPD history we will trial her on doxycycline. She was also given steroids and breathing treatments. She is well-appearing, nontoxic. Feels better after nebulizer treatment. She is out of the albuterol for her nebulizer machine and will refill this for her. Patient counseled regarding signs and symptoms for which I believe and urgent re-evaluation would be necessary. Patient with good understanding of and agreement to plan and is comfortable going home at this time This document was made in part using voice recognition software. While efforts are made to proofread this document, sound alike and grammatical errors may occur. Departure - Departure Disposition: 01 Home, Self Care Clinical Impression: COPD exacerbation Condition: Good Instructions: ED COPD Flare Follow-Up: your,doctor in 1 week [Other] Prescriptions: Albuterol 2.5 mg INH Q4H PRN #30 neb PRN Reason: Wheezing Benzonatate [Tessalon Perle] 100 - 200 mg PO TID PRN #30 capsule PRN Reason: Cough Doxycycline Hyclate 100 mg PO BID #20 tablet Comments: Stop the magnesium while taking the doxycycline. Return if you worsen. Discharge Date/Time: 11/21/17 21:01
[2017-11-21] MEDS ORDERED: predniSONE 20 MG TABLET PO STA (20:16)
[2017-11-21] MEDS ORDERED: IPRATROPIUM/ALBUTEROL 3 ML NEB INH STA (20:16)
[2017-11-21] MEDS ORDERED: DOXYCYCLINE 100 MG TABLET PO STA ×2 (20:38→20:58)
== END 2017-11-21 21:01 | disposition home or self-care (01) ==
LOC: ED 18:23
DX: J44.1 Chronic obstructive pulmonary disease with (acute) exacerbation (principal); I10 Essential (primary) hypertension
CPT/HCPCS: 71046; 94640; 94664; 99283; A9270; J7512

== ENCOUNTER 2018-11-27 07:49 | Outpatient (CLI) | payer MEDICAID ==
[2018-11-27 08:56] LABS: BASOPHILS # (AUTO) 0.1 10^3/uL (0.0-0.1); BASOPHILS % (AUTO) 0.8 %; EOSINOPHILS # (AUTO) 0.2 10^3/uL (0.0-0.7); EOSINOPHILS % (AUTO) 2.9 %; HGB - HEMOGLOBIN 10.8 g/dL (12.0-16.0); LYMPHOCYTES # (AUTO) 3.1 10^3/uL (1.5-3.5); LYMPHOCYTES % (AUTO) 36.1 %; MEAN CORPUSCULAR HEMOGLOBIN 22.8 pg (27.0-31.0); MEAN CORPUSCULAR HGB CONC 31.2 g/dL (32.0-36.0); MEAN CORPUSCULAR VOLUME 73.2 fL (81.0-99.0); MEAN PLATELET VOLUME 7.9 fL (7.9-10.8); MONOCYTES # (AUTO) 0.6 10^3/uL (0.0-1.0); MONOCYTES % (AUTO) 7.6 %; NEUTROPHILS # (AUTO) 4.5 10^3/uL (1.5-6.6); NEUTROPHILS % (AUTO) 52.6 %; PLT - PLATELET COUNT 278 10^3/uL (130-450); RED BLOOD COUNT 4.74 10^6/uL (4.20-5.40); RED CELL DISTRIBUTION WIDTH 17.9 % (12.0-15.0); WHITE BLOOD COUNT 8.5 x10^3/uL (4.8-10.8)
[2018-11-27 09:05] LABS: HB2 TOTAL 11.9 g/dL; HEMOGLOBIN A1C 0.44 g/dL; HEMOGLOBIN A1C % 5.5 % (4.6-6.2)
[2018-11-27 09:06] LABS: ALBUMIN/GLOBULIN RATIO 1.1 (1.0-2.2); ALKALINE PHOSPHATASE 96 IU/L (42-121); ALT ALANINE AMINOTRANSFERASE 15 IU/L (10-60); AST ASPARTATE AMINOTRANSFERASE 22 IU/L (10-42); BILIRUBIN,TOTAL 0.6 mg/dL (0.2-1.0); BUN - BLOOD UREA NITROGEN 22 mg/dL (6-20); CALCIUM 8.8 mg/dL (8.5-10.3); CARBON DIOXIDE - CO2 21 mmol/L (21-32); CHLORIDE 102 mmol/L (101-111); CHOL/HDL RATIO 4.5 (<4.4); CHOLESTEROL 238 mg/dL; CREATININE 0.8 mg/dL (0.4-1.0); GFR - MDRD 77 (>89); GLUCOSE 100 mg/dL (70-100); HDL CHOLESTEROL 53 mg/dL; LDL CHOLESTEROL,CALCULATED 148 mg/dL; LDL/HDL RATIO 2.8 (<4.4); SODIUM 136 mmol/L (135-145); TOTAL PROTEIN 7.6 g/dL (6.7-8.2); VLDL CHOLESTEROL 37 mg/dL
[2018-11-27 09:27] LABS: FOLATE 12.57 ng/mL (5.90 - >24.8)
[2018-11-27 09:35] LABS: CRP - C-REACTIVE PROTEIN 1.7 mg/dL (0-1.0)
[2018-11-27 10:01] LABS: RHEUMATOID FACTOR NEGATIVE (Negative)
[2018-11-29 15:40] LABS: HEPATITIS A IGM NON-REACTIVE (NON-REACTIVE); HEPATITIS B CORE ANTIBODY IGM NON-REACTIVE (NON-REACTIVE); HEPATITIS B SURFACE ANTIGEN NON-REACTIVE (NON-REACTIVE); HEPATITIS C ANTIBODY NON-REACTIVE (NON-REACTIVE)
[2018-11-30 14:32] LABS: ANA SCREEN NEGATIVE (NEGATIVE)
== END 2018-11-27 07:50 | disposition home or self-care (01) ==
LOC: LAB 07:49
PROVIDERS: ATTEND Internal Medicine
DX: M79.7 Fibromyalgia (principal); K21.9 Gastro-esophageal reflux disease without esophagitis; Z13.1 Encounter for screening for diabetes mellitus; Z13.220 Encounter for screening for lipoid disorders
CPT/HCPCS: 36415; 80053; 80061; 80074; 82607; 82746; 83036; 83721; 85025; 85651; 86038; 86140; 86430

== ENCOUNTER 2018-11-27 08:43 | Emergency (ER) | payer MEDICAID ==
[2018-11-27 08:53] VITALS: BP 108/70
--- NOTE | 2018-11-27 09:11 | ED Physician Documentation ---
History of Present Illness - Stated complaint Stated Complaint: BACK PX/GLF - Chief complaint Chief Complaint: Ext Problem - History obtained from History obtained from: Patient - History of Present Illness Timing: Yesterday Pain level max: 8 Pain level now: 5 - Additonal information Additional information: 48-year-old female presents to the emergency department after falling in her bathroom last night. She landed on her tailbone causing pain here. She also landed on her left knee, but is not causing her pain today. She states that she is also constipated has not had a bowel movement in 5 days. She is normally on Dulcolax. She states that she is only on Lyrica at home for pain. Worse with sitting, better with standing. No head injury. No neck or back pain. Review of Systems Constitutional: denies: Fever Respiratory: denies: Cough GI: reports: Constipation (No bowel movement times 5 days). 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 - Present Medications Home Medications: Ambulatory Orders Medication Instructions Recorded Confirmed Albuterol 2.5 mg INH Q4H PRN #30 neb 11/21/17 Albuterol Sulfate [Proair Hfa 1 - 2 puffs PO PRN PRN 11/21/17 11/21/17 Inhaler] Benzonatate [Tessalon Perle] 100 - 200 mg PO TID PRN #30 capsule 11/21/17 Cyclobenzaprine [Flexeril] 10 mg PO PRN PRN 11/21/17 11/21/17 DULoxetine [Cymbalta] 30 mg PO DAILY 11/21/17 11/21/17 Docusate Sodium 1 tab PO DAILY 11/21/17 11/21/17 Doxycycline Hyclate 100 mg PO BID #20 tablet 11/21/17 Fluticasone/Salmeterol [Advair 1 tab PO DAILY 11/21/17 11/21/17 250-50 Diskus] Lisinopril 20 mg PO DAILY 11/21/17 11/21/17 Magnesium Oxide [Magnesium] 400 mg PO DAILY 11/21/17 11/21/17 Prazosin HCl 5 mg PO DAILY 11/21/17 11/21/17 Pregabalin [Lyrica] 100 mg PO DAILY 11/21/17 11/21/17 QUEtiapine [SEROquel] 50 mg PO DAILY 11/21/17 11/21/17 Senna [Senokot] 8.6 mg PO DAILY 11/21/17 11/21/17 Topiramate 50 mg PO DAILY 11/21/17 11/21/17 Topiramate [Trokendi Xr] 100 mg PO DAILY 11/21/17 11/21/17 buPROPion [Wellbutrin Sr] 150 mg PO DAILY 11/21/17 11/21/17 raNITIdine [Zantac] 150 mg PO DAILY 11/21/17 11/21/17 Hydrocodone/Acetaminophen 1 - 2 each PO Q6H PRN #14 tablet 11/27/18 [Hydrocodon-Acetaminophen 5-325] Magnesium Citrate 296 ml PO ONCE PRN #1 bottle 11/27/18 - Allergies Allergies/Adverse Reactions: Allergies Allergy/AdvReac Type Severity Reaction Status Date / Time aloe vera Allergy Rash Verified 11/27/18 08:53 lanolin Allergy Rash Verified 11/27/18 08:53 latex AdvReac Anaphylaxis Verified 11/27/18 08:53 - Social History Does the pt smoke?: No Smoking Status: Never smoker Does the pt drink ETOH?: No Does the pt have substance abuse?: No - Immunizations Immunizations are current?: Yes - POLST Patient has POLST: No PD ED PE NORMAL - Vitals Vital signs reviewed: Yes - General General: Alert and oriented X 3, No acute distress, Well developed/nourished - HEENT HEENT: PERRL, Moist mucous membranes - Neck Neck: Supple, no meningeal sign - Cardiac Cardiac: RRR - Respiratory Respiratory: No respiratory distress, Clear bilaterally - Abdomen Abdomen: Soft, Non tender, Non distended - Back Back: No spinal TTP (No tender palpation over the thoracolumbar spine. She is tender over the distal sacrum/upper coccyx. No swelling, deformity or ecchymosis) - Derm Derm: Warm and dry - Neuro Neuro: Alert and oriented X 3 - Psych Psych: Normal mood, Normal affect Results - Vitals Vitals: Vital Signs - 24 hr 11/27/18 08:51 Temperature 36.5 C Heart Rate 89 Respiratory 18 Rate Blood Pressure 108/70 O2 Saturation 99 Oxygen O2 Source Room air - Rads (name of study) Sacrum/coccyx x-ray Radiology: Prelim report reviewed, EMP read contemporaneously, See rad report (1. No coccygeal fracture identified. 2. Pars defect at L5. 3. Grade 1 anterior listhesis of L5 on S1. ) PD MEDICAL DECISION MAKING - ED course Complexity details: reviewed results, re-evaluated patient, considered differential, d/w patient ED course: 48-year-old female presents to the emergency department with sacrum/coccyx pain after falling. No fracture on x-ray. Ambulating well. She is also constipated will prescribe magnesium citrate for this. No neurological deficits. Patient counseled regarding signs and symptoms for which I believe and urgent re- evaluation would be necessary. Patient with good understanding of and agreement to plan and is comfortable going home at this time This document was made in part using voice recognition software. While efforts are made to proofread this document, sound alike and grammatical errors may occur. Departure - Departure Disposition: 01 Home, Self Care Clinical Impression: Coccyx contusion Qualifiers: Encounter type: initial encounter Qualified Code(s): S30.0XXA - Contusion of lower back and pelvis, initial encounter Constipation Qualifiers: Constipation type: unspecified constipation type Qualified Code(s): K59.00 - Constipation, unspecified Condition: Good Instructions: ED Constipation, ED Contusion Sacrum Coccyx Follow-Up: ALONZO NAYLOR MD [Primary Care Provider] - Within 1 week Prescriptions: Hydrocodone/Acetaminophen [Hydrocodon-Acetaminophen 5-325] 1 - 2 each PO Q6H PRN #14 tablet PRN Reason: pain Magnesium Citrate 296 ml PO ONCE PRN #1 bottle PRN Reason: Constipation Comments: Return if you worsen. Drink plenty of fluids. This should improve over the next several days. Your x-ray does not show any fracture today. Do not drink alcohol or drive while on narcotic pain medicine. Note that many narcotic pain relievers also contain tylenol/acetaminophen. Please ensure that your total dose of acetaminophen from all sources does not exceed 3 grams (3000mg) per day. You may constipated on this medication, take a stool softener such as "Colace" twice a day while you are on it. Also recommend a [id number] laxative such as senna or MiraLAX any day that you do not have a bowel movement. If you received narcotic pain medication in the emergency department, do not drive or operate machinery for the next 24 hours. Discharge Date/Time: 11/27/18 10:02
--- NOTE | 2018-11-27 09:37 | XRAY Report ---
Reason: fall, coccyx pain Procedure Date: 11/27/2018 Accession Number: [id number] / [id number] Procedure: XR - Sacrum/Coccyx CPT Code: FULL RESULT: EXAM: SACRUM AND COCCYX RADIOGRAPHY EXAM DATE: 11/27/2018 09:25 AM. HISTORY: Fall, coccyx pain. COMPARISONS: XR PELVIS 1 OR 2 VIEWS 06/09/2010 10:00 PM. TECHNIQUE: 3 views. FINDINGS: Alignment: Grade 1 anterior listhesis of L5 on S1. Bones: Pars defect at L5. No coccygeal fracture identified. Joints: Normal. The sacroiliac joints and visualized hips are within normal limits. Soft Tissues: Unremarkable. IMPRESSION: 1. No coccygeal fracture identified. 2. Pars defect at L5. 3. Grade 1 anterior listhesis of L5 on S1. RAD[facility]
[2018-11-27] MEDS ORDERED: HYDROcod/ACETAM 5/325 MG TABLET PO STA (09:54)
== END 2018-11-27 10:02 | disposition home or self-care (01) ==
LOC: ED 08:43
DX: S30.0XXA Contusion of lower back and pelvis, initial encounter (principal); W18.12XA Fall from or off toilet with subsequent striking against object, initial encounter; K59.00 Constipation, unspecified; I10 Essential (primary) hypertension; M79.7 Fibromyalgia; K21.9 Gastro-esophageal reflux disease without esophagitis; Z13.1 Encounter for screening for diabetes mellitus; Z13.220 Encounter for screening for lipoid disorders
CPT/HCPCS: 36415; 72220; 80053; 80061; 80074; 82607; 82746; 83036; 85025; 85651; 86038; 86140; 86430; 99283; A9270

== ENCOUNTER 2018-12-03 08:36 | Outpatient (CLI) | payer MEDICAID ==
[2018-12-03 09:06] LABS: % IRON SATURATION 5 % (20-50); IRON 25 ug/dL (28-170); TOTAL IRON BINDING CAPACITY 484 ug/dL (250-450); TRANSFERRIN 346 mg/dL (192-382)
[2018-12-03 09:21] LABS: FERRITIN 3.6 ng/mL (11.0-306.8)
[2018-12-03 09:26] LABS: FOLATE 10.87 ng/mL (5.90 - >24.8)
--- NOTE | 2018-12-06 10:10 | Nuclear Medicine Report ---
Reason: NAUSEA Procedure Date: 12/03/2018 Accession Number: [id number] / [id number] Procedure: NM - Gastric Empty Small Bowel CPT Code: FULL RESULT: EXAM: GASTRIC EMPTYING STUDY EXAM DATE: 12/03/2018 08:59 AM. CLINICAL HISTORY: NAUSEA. COMPARISON: None. TECHNIQUE: A standard meal was radiolabeled with 1 mCi Tc-99m sulfur colloid according to protocol. Following the oral Administration of this meal, the patient underwent multiple static images over the abdomen from the anterior and posterior projections, at approximately 0, 1, and 2 hours following the ingestion of the meal. Region of interest analysis was employed, and percent emptied/percent remaining of the meal was calculated using both the geometric mean and decay corrections. FINDINGS: Calculations demonstrate: TIME (hours) Percent remaining. Normal values for percent remaining. 1 hour: 85.1% (30-90%) 2 hours: 14.2% (0-60%) IMPRESSION: Gastric emptying is in the normal range. RADIA
== END 2018-12-03 08:37 | disposition home or self-care (01) ==
LOC: DI 08:36
PROVIDERS: ATTEND Internal Medicine
DX: R11.0 Nausea (principal); D64.9 Anemia, unspecified
CPT/HCPCS: 36415; 78265; 82728; 82746; 83540; 84466

== ENCOUNTER 2019-11-10 16:20 | Outpatient (CLI) | payer MEDICAID | END 2019-11-10 16:21 | disposition home or self-care (01) | LOC: COV 16:20 | PROVIDERS: ATTEND Family Medicine | DX: R05 Cough (principal); R06.02 Shortness of breath | CPT/HCPCS: 81599 ==